=== PATIENT | male | born 1990 | race African-American/Black ===

== ENCOUNTER 2020-03-10 08:08 | Emergency (ER) | payer OTHER, SELFPAY ==
[2020-03-10 08:56] VITALS: BP 143/63; PULSE 92; RESP 16; TEMP 37.3; O2SAT 97; BMI 28.5
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
== END 2020-03-10 09:30 | disposition home or self-care (01) ==
PROVIDERS: Emergency Provider Internal Medicine
DX: S29.012A Strain of muscle and tendon of back wall of thorax, initial encounter (principal); V43.52XA Car driver injured in collision with other type car in traffic accident, initial encounter; Y93.89 Activity, other specified; Y92.414 Local residential or business street as the place of occurrence of the external cause; Y99.9 Unspecified external cause status
CPT/HCPCS: 99283

== ENCOUNTER 2020-07-07 09:52 | Outpatient (REF) | payer BC, SELFPAY ==
[2020-07-07 11:02] LABS: MANUAL DIFF FLAG NO
[2020-07-07 11:11] LABS: Basophils Percent Auto 0.5 % (0-2); Eosinophils Absolute Auto 0.2 X10*3/uL (0.0-0.4); Eosinophils Percent Auto 3.2 % (0-4); Hematocrit 50.4 % (42-52); Hemoglobin 17.4 g/dl (14.0-18.0); Imm Gran Abs Auto 0.02 X10*3/uL (0.00-0.03); Imm Gran Pct Auto 0.4 % (0.0-0.4); Lymphocytes Absolute Auto 1.9 X10*3/uL (1.2-4.9); Lymphocytes Percent Auto 33.7 % (20-40); Mean Corpuscular HGB Conc 34.5 g/dl (31.0-36.0); Mean Corpuscular Hemoglobin 30.7 pg (27.0-33.0); Mean Corpuscular Volume 88.9 fL (80-98); Mean Platelet Volume 11.7 fL (9.4-12.4); Monocytes Absolute Auto 0.5 X10*3/uL (0.1-1.2); Monocytes Percent Auto 8.3 % (2-11); Neutrophils Absolute Auto 3.1 X10*3/uL (2.0-8.3); Neutrophils Percent Auto 53.9 % (45-73); Platelet Count 202 X10*3/uL (160-400); Red Blood Count 5.67 X10*6/uL (4.60-5.80); White Blood Count 5.7 X10*3/uL (4.8-10.8)
[2020-07-07 11:39] LABS: Alanine Aminotransferase 34 U/L (0-40); Albumin Level 4.4 g/dL (3.5-5.0); Alkaline Phosphatase 50 U/L (39-117); Anion Gap 12 (12-20); Aspartate Amino Transferase 28 U/L (5-37); Bilirubin Total 1.1 mg/dL (0.0-1.0); Blood Urea Nitrogen 16 mg/dL (9-16); Calcium 9.2 mg/dL (8.4-10.2); Carbon Dioxide 26 mmol/L (22-29); Chloride 104 mmol/L (96-108); Cholesterol 173 mg/dL; Estimated Glomerular Filt Rate 59; Glucose Fasting 82 mg/dL (60-99); HDL Cholesterol 55 mg/dL; LDL Cholesterol Calculated 110 mg/dl; Potassium 4.7 mmol/L (3.3-5.1); Sodium 137 mmol/L (135-145); Total Protein 7.4 g/dL (6.5-8.0); Triglycerides 43 mg/dL
== END 2020-07-07 09:53 | disposition home or self-care (01) ==
LOC: HO.LAB 09:52
PROVIDERS: PCP Internal Medicine; Visit Provider Internal Medicine
DX: Z00.00 Encounter for general adult medical examination without abnormal findings (principal); E11.9 Type 2 diabetes mellitus without complications
CPT/HCPCS: 36415; 80053; 80061; 85025

== ENCOUNTER 2020-09-19 17:57 | Emergency (ER) | payer BC, SELFPAY ==
[2020-09-19 18:32] VITALS: BP 136/77; PULSE 77; RESP 17; TEMP 36.6; O2SAT 98; BMI 33.6
--- NOTE | 2020-09-19 18:33 | ED_ITS ---
HPI - Allergic Reaction General Chief complaint: Skin/Abscess/Foreign Body Stated complaint: rash Time Seen by Provider: 09/19/20 18:06 Source: patient Mode of arrival: ambulatory Limitations: no limitations History of Present Illness MD complaint: hives Onset (ago): minute(s) (Prior to arrival) Exposure: unknown (Started while he was working outside possible plan exposure) Symptoms: rash and itching Severity: mild Treatment prior to arrival: none Previous Allergic Reaction History: none Related Data Home Medications Medication Instructions Recorded Confirmed hydroxyzine HCl 25 mg tablet 25 mg PO Q6H PRN 07/03/20 07/03/20 Previous Rx's Medication Instructions Recorded diphenhydramine HCl 25 mg tablet 50 mg PO TID PRN #10 tab 09/19/20 (Benadryl Allergy) famotidine 20 mg tablet (Pepcid) 20 mg PO BID #10 tab 09/19/20 hydrocortisone 2.5 % topical 1 appl TOPICAL QD-TID PRN #454 g 09/19/20 ointment prednisone 20 mg tablet 40 mg PO DAILY 5 Days #10 tab 09/19/20 Allergies Allergy/AdvReac Type Severity Reaction Status Date / Time No Known Allergies Allergy Verified 07/03/20 13:48 Review of Systems Review of Systems: Constitutional : No Fever, No Chills , no body aches, no recent illness Head/Face: No facial swelling, No facial redness ENT/Mouth : No oral/throat swelling, No Hoarseness, No Swallowing Difficulty Eyes: No Eye Pain, No Swelling, No Redness Cardiovascular : No Chest Pain, No SOB, No palpitations Respiratory : No Cough, No Sputum, No Wheezing, No Smoke Exposure, No Dyspnea Gastrointestinal : No Nausea, No Vomiting, No Diarrhea, No abdominal Pain Genitourinary : No Dysuria, No Urinary Frequency, No Hematuria Musculoskeletal : No joint pain, No Myalgias, No Joint Swelling Skin : No Skin Lesions, positive rash Neuro : No Weakness, No Numbness, No Headache, No dizziness, No tingling Psych : No Anxiety/Panic, No Depression Heme/Lymph: No Bruising, No Lymphadenopathy Endocrine : No Polyuria, No Polydipsia Denies changes in lotions or detergents. Denies new medications or any changes in medications. Denies drainage from rash. Denies any recent sick contacts or recent travel. Yes all other systems are reviewed and are negative PMFSH Past Medical History Attestation statement: The following information was validated with the patient. Medical History Anxiety No known health problems Social History Social History Alcohol intake: current Alcohol intake frequency: a few times a week Advance Directives: No Advance Directives Information Provided: Yes Physical Exam Vital Signs: Vital Signs: vital signs have been reviewed as normal and appeared to be correct. Blood pressure normal. Heart rate normal. Respiration rate normal. Temperature normal. Oxygen saturation normal. Appearance: Alert. Oriented X3. No acute distress. Head: Normal external exam. Normocephalic. Eyes: PERRLA. EOMI. Conjunctiva and sclera normal. Eyelids normal. ENT: Pharynx normal. Uvula midline. Moist mucous membranes. No trismus noted. No drooling noted. No muffled voice noted. Neck: Normal inspection. Neck supple. FROM. No adenopathy. No meningeal signs. CVS: Normal heart rate and rhythm. Heart sound normal. No murmurs noted. Pulses normal throughout. Respiratory: No respiratory distress. Painless inspiration. Breath sounds normal. No wheezes/rales/rhonchi noted. Chest nontender. No accessory muscle usage noted or decreased air movement noted. Abdomen: Soft and nontender. Nondistended. No guarding. No rigidity. Bowel sounds normal in all 4 quadrants. No distention noted. No organomegaly noted. No visible injury noted. Back: Full range of motion noted. Skin: Skin warm and dry. Normal skin color. Normal skin turgor. Patient macular papular erythematous blanchable rash to right forearm and left side of abdomen. No streaking/induration/fluctuance or drainage or foreign bodies noted. No lesions/lacerations noted. Extremities: Extremities exhibit normal range of motion. Extremities nontender. Neuro: Oriented X 3. No motor deficit. No sensory deficit. Reflexes normal. Normal steady gait. Course Course Course Narrative: IMP/Plan: Allergic rxn. Not anaphylaxis. Not sepsis/ infectious etiology. Patient well appearing in no acute distress, breathing easily without throat symptoms. Speaking full sentences, and handling secretions without difficulty. There is no obvious threat to airway. Lungs are CTA in all goldstein. No signs of angioedema, stridor, airway compromise, anaphylaxis or anaphylactic shock. Not c/w SSSS/ TEN/ Eryth multiforme/ Fajardo Johnsons. Given HPI and PE - Will watch and observe. If patient continues to be symptom free - will d/c with return precautions. Patient understands and agrees with plan Discharge Plan Discharge Clinical Impression: Allergic reaction Patient Disposition: Home, Self-Care Instructions: Urticaria (ED), Poison Maria De Jesus (ED), General Allergic Reaction (ED), Allergy Testing (ED) Prescriptions: New diphenhydramine HCl [Benadryl Allergy] 25 mg tablet 50 mg PO TID PRN (Reason: allergic reaction) Qty: 10 RF: 0 prednisone 20 mg tablet 40 mg PO DAILY 5 Days Qty: 10 RF: 0 hydrocortisone 2.5 % ointment 1 appl topical QD-TID PRN (Reason: skin irritation) Qty: 454 RF: 0 famotidine [Pepcid] 20 mg tablet 20 mg PO BID Qty: 10 RF: 0 No Action hydroxyzine HCl 25 mg tablet 25 mg PO Q6H PRN (Reason: anxiety) RF: 0 Referrals: Physician,Unknown [Primary Care Provider] - 2 days (your pcp) Stand Alone Forms: Work/School Release Print Language: Citizen Of [place]
== END 2020-09-19 18:59 | disposition home or self-care (01) ==
LOC: HO.ED 18:40
PROVIDERS: Emergency Provider Emergency Medicine Emergency Medical Services
DX: L50.0 Allergic urticaria (principal); Z79.899 Other long term (current) drug therapy
CPT/HCPCS: 99283

== ENCOUNTER 2020-11-08 11:25 | Outpatient (REF) | payer BC, SELFPAY | END 2020-11-08 11:26 | disposition home or self-care (01) | LOC: HO.LAB 11:25 | PROVIDERS: Visit Provider Internal Medicine | DX: Z20.822 Contact with and (suspected) exposure to COVID-19 (principal) | CPT/HCPCS: C9803; U0003; U0005 ==